=== PATIENT | female | born 1990 | race Caucasian/White ===

== ENCOUNTER 2023-09-11 18:12 | Emergency (ER) | payer MEDICAID ==
[~2023-09-11] VITALS: Ht 180.3 cm; Wt 203.0 kg
[2023-09-11 18:16] VITALS: TEMP 98.5; O2SAT 100
[2023-09-11 19:48] VITALS: BP 145/85; PULSE 79; RESP 20
== END 2023-09-11 19:52 | disposition home or self-care (01) ==
LOC: ER 18:12
DX: F31.9 Bipolar disorder, unspecified (principal); I10 Essential (primary) hypertension
CPT/HCPCS: 99283

== ENCOUNTER 2023-09-12 17:06 | Emergency (ER) | payer MEDICAID ==
[~2023-09-12] VITALS: Ht 167.6 cm; Wt 97.0 kg
[2023-09-12 17:12] VITALS: BP 142/80; PULSE 82; RESP 16; TEMP 98.3; O2SAT 97
== END 2023-09-12 19:40 | disposition home or self-care (01) ==
LOC: ER 17:06
DX: R53.1 Weakness (principal); I10 Essential (primary) hypertension
CPT/HCPCS: 99283